=== PATIENT | female | born 1975 | race Native Hawaiian/Other Pacific Islander ===

== ENCOUNTER 2016-06-13 16:24 | Outpatient (CLI) | payer BC | END 2016-06-13 19:48 | disposition home or self-care (01) | LOC: US 16:24 | DX: M79.604 Pain in right leg (principal) ==

== ENCOUNTER 2016-06-28 13:27 | Outpatient (CLI) | payer BC | END 2016-06-28 14:27 | disposition home or self-care (01) | LOC: RAD 13:27 | DX: M79.604 Pain in right leg (principal) ==

== ENCOUNTER 2017-09-20 09:36 | Outpatient (CLI) | payer BC | END 2017-09-20 22:05 | disposition home or self-care (01) | LOC: LABW 09:36 | DX: R10.13 Epigastric pain (principal) | CPT/HCPCS: 36415; 82150; 83690; 86677 ==

== ENCOUNTER 2017-09-21 08:37 | Outpatient (CLI) | payer BC | END 2017-09-21 22:44 | disposition home or self-care (01) | LOC: US 08:37 | DX: R10.84 Generalized abdominal pain (principal); R10.13 Epigastric pain; R14.2 Eructation; K80.80 Other cholelithiasis without obstruction ==